=== PATIENT | male | born 1990 | race African-American/Black ===

== ENCOUNTER 2019-08-12 19:29 | Emergency (ER) | payer OTHER ==
[~2019-08-12] VITALS: Ht 165.1 cm; Wt 122.5 kg
[2019-08-12 20:02] VITALS: BP 154/96
--- NOTE | 2019-08-12 20:16 | PHYS DOC ---
Past Medical History Past Medical History: No Pertinent History Past Surgical History: Appendectomy, Tonsillectomy Alcohol Use: Occasionally Drug Use: None Adult General Chief Complaint Chief Complaint: POST-OP PROBLEM HPI HPI 29-year-old male presents to the emergency department with concerns for postoperative tonsillectomy pain. [facility]. He presents tonight with concern for a black area on his right tonsil. He denies any bleeding. Denies any fever. Has had sore throat which is expected. Nothing makes pain better, he states he has pain medications at home. All other ROS negative unless documented in HPI Review of Systems Review of Systems See Above Physical Exam Physical Exam See Above Constitutional: Well developed, well nourished, no acute distress, non-toxic appearance. [] HENT: Normocephalic, atraumatic, bilateral external ears normal, oropharynx moist, no oral exudates, nose normal. Evaluation throat reveals evidence as Appreciated to the right tonsil, left tonsil without scabbing and no evidence of bleeding.[] Neck: Normal range of motion, no tenderness, supple, no stridor. [] Cardiovascular:Heart rate regular rhythm, no murmur [] Neurologic: Alert and oriented X 3, no focal deficits noted. [] Psychologic: Affect normal, judgement normal, mood normal. [] Current Patient Data Vital Signs Vital Signs Date Time Temp Pulse Resp B/P (MAP) Pulse Ox O2 Delivery O2 Flow Rate FiO2 08/12/19 20:02 99.5 123 16 154/96 (115) 95 Room Air 99.5 EKG EKG [] Radiology/Procedures Radiology/Procedures [] Course & Med Decision Making Course & Med Decision Making Pertinent Labs and Imaging studies reviewed. (See chart for details) []29-year-old male presents to the emergency department with concerns for postoperative tonsillectomy pain. [facility]omy performed. He presents tonight with concern for a black area on his right tonsil. He denies any bleeding. Denies any fever. Has had sore throat which is expected. Nothing makes pain better, he states he has pain medications at home. No evidence of acute bleeding, evidence of scab appreciated right tonsil. Will plan for discharge and follow up with primary care physician, continue follow-up per ENT as scheduled. Patient does have elevated blood pressure without diagnosis of hypertension this may be related to pain however would recommend follow-up with primary care physician. Frank Disclaimer Dragon Disclaimer This electronic medical record was generated, in whole or in part, using a voice recognition dictation system. Departure Departure Impression: Primary Impression: Post-tonsillectomy pain Disposition: HOME, SELF-CARE Condition: STABLE Patient Instructions: Tonsillectomy, Adult, Care After Additional Instructions: Recommend follow up with PCP 3 - 5 days Return to the ER with worsening symptoms, intractable pain, fever, altered mental status Tylenol/Motrin as needed for pain Recommend following up with primary care physician to establish care regarding blood pressure control and further workup. At this time would not start medications given 1 reading. Primary care list provided. ZOFIA REED MD Aug 12, 2019 20:16
== END 2019-08-12 20:40 | disposition home or self-care (01) ==
LOC: ER 19:29
DX: G89.18 Other acute postprocedural pain (principal); J02.9 Acute pharyngitis, unspecified; Z90.89 Acquired absence of other organs
CPT/HCPCS: 99281